=== PATIENT | female | born 1985 | race Caucasian/White ===

== ENCOUNTER 2023-10-28 22:44 | Emergency (ER) | payer BC, SELFPAY ==
[2023-10-28 22:49] VITALS: BP 113/75
--- NOTE | 2023-10-28 23:21 | ED.GENMED ---
History of Present Illness
<BRIAN Perkins - Last Filed: 10/29/23 01:27>
General
Chief Complaint: Headache
Source: patient and significant other
Exam Limitations: none
Time Seen by Provider: 10/28/23 23:20
Nursing documentation reviewed up to this point in time: agreed with
History of Present Illness
History of Present Illness:
38 year old female presents for evaluation of headache. Pt has a history of intermittent migraines for which she is followed by a neurologist. She also takes eletriptan 40 mg as needed for migraines. Typically experiences 1-2 migraines per month
which she states are related to the onset of her menstrual periods. Pt notes that her current symptoms began at approximately 1500 on 10/27 with associated nausea and 7 bouts of vomiting. Pt currently endorses a right-sided throbbing headache that is
9/10 in pain severity, worsened by bright lights and loud noises. Eletriptan provided no symptom relief per pt. She denies changes in vision, syncope, dysarthria, dizziness, weakness, and numbness/tingling.
Past History
<BRIAN Perkins - Last Filed: 10/29/23 01:27>
Past History
ED Past Medical History: Other (Takes Synthroid)
ED Past Surgical History: Other (throidectomy, parathyroidectomy, wisdom teeth)
Social History
Tobacco: Non-smoker
Personal:
Living: with family
Employment: Not employed
Review of Systems
<BRIAN Perkins - Last Filed: 10/29/23 01:27>
Review of Systems
Allergies reviewed?: Yes
Constitutional: Reports no symptoms
EENT: Reports no symptoms
Respiratory: Reports no symptoms
Cardiac: Reports no symptoms
ABD/GI: Reports nausea and vomiting
: Reports no symptoms
Musculoskeletal: Reports no symptoms
Skin: Reports no symptoms
Neurological: Reports headache
Endocrine: Reports no symptoms
Hematologic/Lymphatic: Reports no symptoms
Psychiatric: Reports no symptoms
Phy Exam
<BRIAN Perkins - Last Filed: 10/29/23 01:27>
General Physical Exam
General Presentation: mild distress
General age: appears stated age
General Skin: warm
General Habitus: normal
General Mental: alert
General Hydration: appears well hydrated
ENT Exam
ENT Exam: EOMI and normocephalic
Eye Exam
Eye Exam: PERRL
Cardiovascular Exam
Cardiovascular Exam: regular rate/rhythm and no murmur
Pulmonary Exam
Pulmonary Exam: lungs clear and no respiratory distress
Neurological Exam
Neurological Exam: alert, oriented x3, no motor deficits, no sensory deficits and speech normal
Course
<BRIAN Perkins - Last Filed: 10/29/23 01:27>
Orders/Labs/Results
Orders:
Orders
10/28/23 22:54
Test Result ONCE
10/28/23 23:38
Complete Blood Count/With Diff Urgent
Comprehensive Metabolic Panel Urgent
HCG, Serum Qualitative Screen Urgent
10/28/23 23:48
0.9% Sodium Chloride 1000 ml [Nss] 1,000 ml IV BOLUS
Diphenhydramine [Benadryl] 25 mg IV NOW STA
Ketorolac [Toradol] 15 mg IV NOW STA
Prochlorperazine [Compazine] 5 mg IV NOW STA
Abnormal Lab Results
10/28/23
23:38
RBC 4.03 L 10^6/uL
(4.20-5.40)
MCH 31.8 H pg
(27.0-31.0)
Absolute Monos (auto) 0.9 H 10^3/uL
(0.1-0.6)
Monocytes % 11.1 H %
(1.7-9.3)
Sodium 133 L mmol/L
(135-145)
BUN 18 H mg/dl
(7-17)
10/28/23 23:38
10/28/23 23:38
Vital Signs
Initial and Last Documented VS:
Initial Vital Signs
Temp Pulse Resp BP Pulse Ox
98.0 F 74 20 113/75 98
10/28/23 22:49 10/28/23 22:49 10/28/23 22:49 10/28/23 22:49 10/28/23 22:49
Last Documented Vital Signs
Temp Pulse Resp BP Pulse Ox
98.0 F 66 18 98/58 99
10/28/23 22:49 10/29/23 01:00 10/29/23 01:00 10/29/23 01:00 10/29/23 01:00
<Amita Almeida, DO - Last Filed: 10/29/23 01:11>
Orders/Labs/Results
Orders:
Orders
10/28/23 22:54
Test Result ONCE
10/28/23 23:38
Complete Blood Count/With Diff Urgent
Comprehensive Metabolic Panel Urgent
HCG, Serum Qualitative Screen Urgent
10/28/23 23:48
0.9% Sodium Chloride 1000 ml [Nss] 1,000 ml IV BOLUS
Diphenhydramine [Benadryl] 25 mg IV NOW STA
Ketorolac [Toradol] 15 mg IV NOW STA
Prochlorperazine [Compazine] 5 mg IV NOW STA
Abnormal Lab Results
10/28/23
23:38
RBC 4.03 L 10^6/uL
(4.20-5.40)
MCH 31.8 H pg
(27.0-31.0)
Absolute Monos (auto) 0.9 H 10^3/uL
(0.1-0.6)
Monocytes % 11.1 H %
(1.7-9.3)
Sodium 133 L mmol/L
(135-145)
BUN 18 H mg/dl
(7-17)
10/28/23 23:38
10/28/23 23:38
Vital Signs
Initial and Last Documented VS:
Initial Vital Signs
Temp Pulse Resp BP Pulse Ox
98.0 F 74 20 113/75 98
10/28/23 22:49 10/28/23 22:49 10/28/23 22:49 10/28/23 22:49 10/28/23 22:49
Last Documented Vital Signs
Temp Pulse Resp BP Pulse Ox
98.0 F 66 18 98/58 99
10/28/23 22:49 10/29/23 01:00 10/29/23 01:00 10/29/23 01:00 10/29/23 01:00
<BRIAN Perkins - Last Filed: 10/29/23 01:27>
MDM/Problems Addressed
Differential Diagnosis Includes:
migraine
<BRIAN Perkins - Last Filed: 10/29/23 01:27>
*Critical Care Note
Total Time (30-74mins, 75-104mins- exclusive of procedures): Not Applicable
<Amita Almeida DO - Last Filed: 10/29/23 01:11>
*Pulse Oximetry
Patient hypoxic: no
*Critical Care Note
Total Time (30-74mins, 75-104mins- exclusive of procedures): Not Applicable
<BRIAN Perkins - Last Filed: 10/29/23 01:27>
Update Note
Update Note:
10/29/23 0045: pt reports cessation of headache and nausea with medications and IV fluids
ED Attending Note
<BRIAN Perkins - Last Filed: 10/29/23 01:27>
-
Portions of this chart may have been created with voice recognition software.� Occasional wrong word or��sound alike� substitutions may have occurred due to the inherent limitations of voice recognition software.
<Amita Almeida DO - Last Filed: 10/29/23 01:11>
ED Attending Note
Patient seen and examined by attending physician: Yes
I performed a history and physical exam of patient and discussed management with resident, I reviewed resident's note and agree with documented findings and plan of care.: Yes
ED Attending Note:
This is a 38-year-old woman who has history of migraine headaches, follows with neurologist at [facility]. Migraines generally occur 1 to 2/month and are generally hormonally mediated, most often with or around her menstrual periods. Generally
resolves with as needed Relpax.
Since yesterday however she complains of significant migraine headache, slow in onset but persistent and accompanied with nausea and vomiting more so throughout the day today. She has not had a fever nor chills, no neck pain, no nasal congestion
nor sore throat. She does admit to mild photophobia but no vision loss.
She denies risk of .
Her menses is due in approximately 1 to 2 days.
GENERAL: 38-year-old woman appears her stated age, bright and alert, pleasant, appears moderately uncomfortable, lying on her right side in a dark room. Easily communicative. is accompanying.
Vital signs reviewed, all within normal limits.
EYE: pupils equal and reactive. Extraocular muscles intact. Anicteric
NECK: Supple, nontender, no meningismus, no significant adenopathy.
ENT: oral mucosa is moist. No rhinorrhea.
CARDIAC: Regular rate and rhythm. no murmur.
LUNGS: Clear breath sounds bilaterally, no acute respiratory distress, no wheezes/rales/rhonchi
ABDOMEN: Soft, nondistended, without focal tenderness, no r/g, normoactive BS.
NEUROLOGICAL: Alert and oriented x3, no focal neuro deficits. Gait is steady.
SKIN: Warm and dry, normal color, skin intact. No rash.
MUSCULOSKELETAL: No C/C/E. peripheral pulses are full and equal b/l. No palpable tenderness.
PSYCH: Normal and appropriate interaction.
Patient presents with migraine headache accompanied with nausea and vomiting, persistent since yesterday. Denies abrupt in onset nor thunderclap in nature.
No associated neurodeficits nor febrile illness.
Reports unremarkable neuroimaging in the past. No indication to repeat at this point.
Will trial our typical migraine cocktail with normal saline solution, Compazine, Benadryl, Toradol and continue to observe.
10/29/2023 0110 AM
Patient resting comfortably, sleeps when undisturbed, easily arousable.
Reports complete relief of headache and no further nausea.
Labs are unremarkable as expected.
Will discharge to home with recommendations for follow-up with neurologist as needed.
requests prescription for Compazine to have on hand if headache with nausea recurs which is not a bad idea.
Prescription for Compazine 5 mg tablet has been provided.
Return precautions discussed.
Discharge Plan
Departure
Patient Disposition: Home (Routine Discharge)
Date of Disposition: 10/29/23
Time of Disposition: 01:08
Patient with high blood pressure during this ER visit?: No
Condition: Good
Discharge Problem:
ACUTE MIGRAINE HEADACHE
Instructions: Migraines (DC)
Prescriptions:
New
prochlorperazine maleate [Compazine] 5 mg tablet
5 mg PO BID PRN (Reason: nausea and vomiting) Qty: 10 0RF
No Action
eletriptan
40 mg PO DAILY PRN (Reason: migraine)
Referrals:
Jose M,Chrissie, [employer] [Family Provider] - As needed
Interventions
Interventions:
*Risk Screen - Suicide Last Done: 10/28/23 22:49
*General Assessment Last Done: 10/28/23 22:49
*Neglect/Abuse Screening Last Done: 10/28/23 22:49
ED- Fall Risk Assessment Last Done: 10/28/23 22:49
*ED COVID-19 Vaccine History Last Done: 10/28/23 22:49
*Nursing Disposition Last Done: 10/29/23 01:16
ED- Neurological Assessment Last Done: 10/28/23 23:30
Discharge Date and Time
Discharge Date/Time: 10/29/23 01:18
Print Language: PERUVIAN
[2023-10-28 23:50] LABS: % Basophils 0.5 % (0-2); % Eosinophils 1.4 % (0-6); % Immature Granulocytes 0.4 % (0-0.5); % Lymphocytes 22.3 % (20.5-51.1); % Monocytes 11.1 % (1.7-9.3); % Neutrophils 64.3 % (42.2-75.2); Absolute Eosinophils 0.1 10^3/uL (0-0.7); Absolute Lymphocytes 1.8 10^3/uL (1.2-3.4); Absolute Monocytes 0.9 10^3/uL (0.1-0.6); Absolute Neutrophils 5.2 10^3/uL (1.4-6.5); Hematocrit 37.2 % (37.0-47.0); Hemoglobin 12.8 g/dL (12.0-16.0); Mean Corp Hgb Conc. 34.4 g/dL (33.0-37.0); Mean Corpuscular Hgb 31.8 pg (27.0-31.0); Mean Corpuscular Volume 92.3 fL (81.0-99.0); Mean Platelet Volume 9.3 fL (7.4-10.4); Nucleated Red Blood Cells % 0 %; Platelet Count 278 10^3/uL (130-400); Red Blood Cell Count 4.03 10^6/uL (4.20-5.40); Red Cell Dist. Width 12.2 % (11.5-14.5)
[2023-10-28] MEDS: BENADRYL 25 MG IV (23:51)
[2023-10-28] MEDS: NSS 1000 IV (23:51)
[2023-10-28] MEDS: COMPAZINE 5 MG IV (23:51)
[2023-10-28] MEDS: TORADOL 15 MG IV (23:52)
[2023-10-28 23:53] VITALS: BMI 17.7
[2023-10-29] VITALS: BP 110/67
[2023-10-29 00:06] LABS: HCG, Serum Qualitative Screen Negative
[2023-10-29 00:11] LABS: ALT (SGPT) 21 U/L (0-35); AST (SGOT) 25 U/L (14-36); Albumin 4.5 g/dl (3.5-5.0); Alkaline Phosphatase 53 U/L (38-126); Blood Urea Nitrogen 18 mg/dl (7-17); Calcium 9.3 mg/dl (8.4-10.2); Carbon Dioxide 23 mmol/L (22-30); Chloride 101 mmol/L (98-107); Estimated Creatinine Clearance 89 ml/min; Glucose 89 mg/dl (70-99); Potassium 3.8 mmol/L (3.5-5.1); Sodium 133 mmol/L (135-145); Total Bilirubin 0.7 mg/dl (0.2-1.3); Total Protein 7.2 g/dl (6.3-8.2); eGFR > 60.00
[2023-10-29 01:00] VITALS: BP 98/58
== END 2023-10-29 01:18 | disposition home or self-care (01) ==
LOC: EMR 22:44
PROVIDERS: EMERGENCY PHYSICIAN Emergency Medicine; FAMILY PHYSICIAN Nurse Practitioner Family
DX: G43.909 Migraine, unspecified, not intractable, without status migrainosus (principal)
CPT/HCPCS: 99284; 96374; 96375 ×2; 96361; 80053; 84703; 85025